=== PATIENT | female | born 1985 | race Caucasian/White ===

== ENCOUNTER 2017-04-08 20:03 | Emergency (ER) | payer OTHER ==
[~2017-04-08] VITALS: Ht 165.1 cm; Wt 105.0 kg
[2017-04-08 20:04] VITALS: BP 129/86; PULSE 107; RESP 16; TEMP 98.7; O2SAT 98
[2017-04-08] MEDS ORDERED: SODIUM CHLOR 0.9% 1000 ML INJ 1,000 ML IV SCH (21:05)
--- NOTE | 2017-04-08 21:10 | PD ---
HPI Chief Complaint: Abdominal Pain Time Seen by Provider: 21:01 Travel History International Travel<30 days: No Contact w/Intl Traveler<30days: No Traveled to known affect area: No History of Present Illness HPI 31-year-old female complains of right upper quadrant abdominal pain. Patient states that she has intermittent right upper quadrant abdominal pain for the past 13 years. Patient states that she was told that she has gallbladder disease. Patient was advised to have cholecystectomy in the past. Patient has not seen any surgeon for that. Patient states that she started having increased right upper quadrant abdominal pain since last night. Patient states the pain is worse today. Patient states the pain is sharp pain localized to right upper quadrant abdomen. Patient denies any pain radiation. Patient denies any fever chills. Patient denies any dysuria or frequency. Patient states that she has nausea but no vomiting or diarrhea. Patient denies any vaginal discharge or bleeding. Patient status post tubal ligation. PFSH Past Medical History Gastrointestinal Disorders: Yes (galstones) Tetanus Vaccination: Unknown Influenza Vaccination: No ?: Not LMP: 03/23/2017 Tubal Ligation: Yes Past Surgical History Section: Yes Social History Alcohol Use: Yes (socially) Tobacco Use: Yes Substance Use: No Allergies-Medications (Allergen,Severity, Reaction): Coded Allergies: Penicillins (Verified Allergy, Severe, Anaphylaxis, 04/08/17) Reported Meds & Prescriptions Reported Meds & Active Scripts Active No Active Prescriptions or Reported Medications Review of Systems General / Constitutional: No: Fever Eyes: No: Visual changes HENT: No: Headaches Cardiovascular: No: Chest Pain or Discomfort Respiratory: No: Shortness of Breath Gastrointestinal: Positive: Nausea, Abdominal Pain Genitourinary: No: Dysuria Musculoskeletal: No: Pain Skin: No Rash Neurologic: No: Weakness Psychiatric: No: Depression Endocrine: No: Polydipsia Hematologic/Lymphatic: No: Easy Bruising Physical Exam Narrative GENERAL: Well-nourished, well-developed patient. SKIN: Focused skin assessment warm/dry. HEAD: Normocephalic. EYES: No scleral icterus. No injection or drainage. NECK: Supple, trachea midline. No JVD or lymphadenopathy. CARDIOVASCULAR: Regular rate and rhythm without murmurs, gallops, or rubs. RESPIRATORY: Breath sounds equal bilaterally. No accessory muscle use. GASTROINTESTINAL: Abdomen soft, nondistended. Patient has moderate tenderness on palpation right upper quadrant of the abdomen. No rebound tenderness. No mass. MUSCULOSKELETAL: No cyanosis, or edema. BACK: Nontender without obvious deformity. No CVA tenderness. Neurologic exam normal. Data Data Last Documented VS Vital Signs Date Time Temp Pulse Resp B/P (MAP) Pulse Ox O2 Delivery O2 Flow Rate FiO2 04/08/17 20:04 98.7 107 16 129/86 (100) 98 Room Air Orders Orders Complete Blood Count With Diff (04/08/17 21:05) Comprehensive Metabolic Panel (04/08/17 21:05) Lipase (04/08/17 21:05) Urinalysis - C+S If Indicated (04/08/17 21:05) Us Abdomen Gallbladder (04/08/17 ) Iv Access Insert/Monitor (04/08/17 21:05) Ecg Monitoring (04/08/17 21:05) Oximetry (04/08/17 21:05) Morphine Inj (Morphine Inj) (04/08/17 21:15) Ondansetron Inj (Zofran Inj) (04/08/17 21:15) Sodium Chlor 0.9% 1000 Ml Inj (Ns 1000 M (04/08/17 21:05) Sodium Chloride 0.9% Flush (Ns Flush) (04/08/17 21:15) Famotidine Inj (Pepcid Inj) (04/08/17 21:15) Labs Laboratory Tests Test 04/08/17 21:00 04/08/17 21:30 White Blood Count 11.4 TH/MM3 Red Blood Count 4.92 MIL/MM3 Hemoglobin 14.5 GM/DL Hematocrit 42.9 % Mean Corpuscular Volume 87.3 FL Mean Corpuscular Hemoglobin 29.5 PG Mean Corpuscular Hemoglobin Concent 33.8 % Red Cell Distribution Width 14.1 % Platelet Count 314 TH/MM3 Mean Platelet Volume 7.5 FL Neutrophils (%) (Auto) 64.3 % Lymphocytes (%) (Auto) 26.2 % Monocytes (%) (Auto) 6.3 % Eosinophils (%) (Auto) 2.6 % Basophils (%) (Auto) 0.6 % Neutrophils # (Auto) 7.3 TH/MM3 Lymphocytes # (Auto) 3.0 TH/MM3 Monocytes # (Auto) 0.7 TH/MM3 Eosinophils # (Auto) 0.3 TH/MM3 Basophils # (Auto) 0.1 TH/MM3 CBC Comment DIFF FINAL Differential Comment Blood Urea Nitrogen 7 MG/DL Creatinine 0.84 MG/DL Random Glucose 119 MG/DL Total Protein 7.6 GM/DL Albumin 3.6 GM/DL Calcium Level 8.9 MG/DL Alkaline Phosphatase 81 U/L Aspartate Amino Transf (AST/SGOT) 13 U/L Alanine Aminotransferase (ALT/SGPT) 30 U/L Total Bilirubin 0.2 MG/DL Sodium Level 138 MEQ/L Potassium Level 3.4 MEQ/L Chloride Level 106 MEQ/L Carbon Dioxide Level 25.4 MEQ/L Anion Gap 7 MEQ/L Estimat Glomerular Filtration Rate 79 ML/MIN Lipase 135 U/L Urine Color YELLOW Urine Turbidity HAZY Urine pH 5.5 Urine Specific [place] 1.026 Urine Protein TRACE mg/dL Urine Glucose (UA) NEG mg/dL Urine Ketones NEG mg/dL Urine Occult Blood NEG Urine Nitrite NEG Urine Bilirubin NEG Urine Urobilinogen LESS THAN 2.0 MG/DL Urine Leukocyte Esterase TRACE Urine RBC LESS THAN 1 /hpf Urine WBC LESS THAN 1 /hpf Urine Squamous Epithelial Cells 2 /hpf Urine Mucus FEW /lpf Microscopic Urinalysis Comment CULT NOT INDICATED MDM Medical Decision Making Medical Screen Exam Complete: Yes Emergency Medical Condition: Yes Interpretation(s) Last Impressions Gall Bladder Ultrasound 04/08/17 0000 Signed Impressions: Service Date/Time: Saturday, April 08, 2017 21:50 - CONCLUSION: The liver is slightly echogenic which maybe due to fatty infiltration and or hepatocellular dysfunction. Dmitry Rush MD 22:41 PM. CBC within normal limit. CMP within normal limit. Potassium 3.4. UA is negative. Differential Diagnosis Differential diagnosis including cholecystitis, nephrolithiasis, pyelonephritis , colitis. Narrative Course 31-year-old female with recurrent right upper quadrant abdominal pain, worse since last night. History of gallbladder disease. Normal saline solution 1 25 cc an hour. Pepcid 20 mg IV. Morphine 2 mg IV. Zofran 4 mg IV. Diagnosis Primary Impression: Abdominal pain Qualified Codes: R10.11 - Right upper quadrant pain Patient Instructions: General Instructions Additional Instructions: Take medications as directed. Follow-up with personal physician and GI specialist. Return if worse. Med/Other Pt SpecificInfo: Prescription(s) given Scripts Ondansetron Odt (Zofran Odt) 4 Mg Tab 4 MG SL Q6HR Y for Nausea/Vomiting, #12 TAB 0 Refills Prov: Catalino Ayala MD 04/08/17 Dicyclomine (Bentyl) 10 Mg Cap 10 MG PO TID Y for Bowel Management, #30 CAP 0 Refills Prov: Catalino Ayala MD 04/08/17 Pantoprazole (Protonix) 20 Mg Tab 20 MG PO DAILY for Reflux, #30 TAB 0 Refills Prov: Catalino Ayala MD 04/08/17 Disposition: 01 DISCHARGE HOME Condition: Stable Catalino Ayala MD Apr 08, 2017 21:10
[2017-04-08] MEDS ORDERED: MORPHINE SULFATE 4 MG/ML INJ IV PUSH ONE (21:15)
[2017-04-08] MEDS ORDERED: FAMOTIDINE 20 MG/2 ML VIAL IV PUSH ONE (21:15)
[2017-04-08] MEDS ORDERED: SODIUM CHLORIDE 0.9% FLUSH 10 ML FLUSH IV FLUSH PRN (21:15)
[2017-04-08] MEDS ORDERED: ONDANSETRON HCL 4 MG/2 ML VIAL IVP ONE (21:15)
[2017-04-08 21:34] LABS: AUTOMATED NEUTROPHIL # 7.3 TH/MM3 (1.8-7.7); BASOPHIL # 0.1 TH/MM3 (0-0.2); BASOPHIL % 0.6 % (0.0-2.0); EOSINOPHIL # 0.3 TH/MM3 (0-0.4); EOSINOPHIL % 2.6 % (0.0-4.0); HEMATOCRIT 42.9 % (35.0-46.0); HEMO FLAGS DIFF FINAL; LYMPH % 26.2 % (9.0-44.0); MEAN CELL VOLUME 87.3 FL (80.0-100.0); MEAN CORPUSCULAR HEMOGLOBIN 29.5 PG (27.0-34.0); MEAN CORPUSCULAR HGB CONC 33.8 % (32.0-36.0); MONO % 6.3 % (0.0-8.0); NEUT % 64.3 % (16.0-70.0); PLATELET COUNT 314 TH/MM3 (150-450); RED BLOOD COUNT 4.92 MIL/MM3 (4.00-5.30); RED CELL DISTRIBUTION WIDTH 14.1 % (11.6-17.2); WHITE BLOOD COUNT 11.4 TH/MM3 (4.0-11.0)
[2017-04-08 21:39] LABS: BLOOD, URINE NEG (NEG); COMMENT (UR) CULT NOT INDICATED; CULTURE IF INDICATED CULT NOT INDICATED; GLUCOSE,URINE NEG (NEG); KETONE, URINE NEG (NEG); MUCUS URINE FEW /lpf (OCC); NITRITE,URINE NEG (NEG); PH, URINE 5.5 (5.0-8.5); SQUAMOUS EPITHELIAL CELL URINE 2 /hpf (0-5); URINE COLOR YELLOW (YELLW/STRAW)
[2017-04-08 21:49] LABS: ALT (GPT) 30 U/L (10-53); ANION GAP 7 MEQ/L (5-15); AST (GOT) 13 U/L (15-37); BICARBONATE 25.4 MEQ/L (21.0-32.0); BLOOD UREA NITROGEN 7 MG/DL (7-18); CHLORIDE 106 MEQ/L (98-107); GLOMERULAR FILTRATION RATE 79 ML/MIN (>89); POTASSIUM 3.4 MEQ/L (3.5-5.1); SODIUM (NA) 138 MEQ/L (136-145)
[2017-04-08 21:52] LABS: ALKALINE PHOSPHATASE 81 U/L (45-117); TOTAL BILIRUBIN ADULT 0.2 MG/DL (0.2-1.0)
--- NOTE | 2017-04-08 22:28 | RADRPT ---
EXAM DATE/TIME: 04/08/2017 21:50 [facility] COMPARISON: No previous studies available for comparison. INDICATIONS : Right upper quadrant pain. MEDICAL HISTORY : Cholelithiasis. SURGICAL HISTORY : Tubal ligation. section. ENCOUNTER: Initial ACUITY: 1 day PAIN SCORE: 2/10 LOCATION: Right upper quadrant MEASUREMENTS: LIVER: 17.9 cm length COMMON DUCT: 5 mm RIGHT KIDNEY: 13.1 x 6.7 x 5.1 cm FINDINGS: The liver is slightly echogenic which maybe due to fatty infiltration and or hepatocellular dysfuncti on. The gallbladder is intact without any evidence for gallstones, gallbladder wall thickening, or pe richolecystic fluid. The visualized head of the pancreas, and right kidney appear grossly intact for technique. CONCLUSION: The liver is slightly echogenic which maybe due to fatty infiltration and or hepatoce llular dysfunction. Dmitry Rush MD on April 08, 2017 at 22:26 Board Certified Radiologist. This report was verified electronically.
[2017-04-08 22:45] VITALS: O2SAT 98
[2017-04-08] MEDS ORDERED: ZOFR4TAB3 SL (22:46)
[2017-04-08] MEDS ORDERED: DICY10 PO (22:46)
[2017-04-08] MEDS ORDERED: PANT20 PO (22:46)
== END 2017-04-08 23:01 | disposition home or self-care (01) ==
LOC: NEPD 20:03
DX: R10.11 Right upper quadrant pain (principal); R11.0 Nausea
CPT/HCPCS: 76705; 80053; 81001; 83690; 85025; 96361; 96374; 96375; 99285; J2270; J2405; J7030